=== PATIENT | female | born 1980 | race Hispanic/Latino ===

== ENCOUNTER 2016-12-21 22:45 | Emergency (ER) | payer MEDICAID ==
[2016-12-21 22:46] VITALS: BMI 24.4
[2016-12-21 23:01] VITALS: O2SAT 97
--- NOTE | 2016-12-21 23:20 | C.PDOC ---
History Of Present Illness 36 y/o female presents to the ED with complaint of alcohol withdrawal. Patient states she was trying to get alcohol but her mother wanted her to come to the ED. Patient is complaining of shakes. Patient has history of withdrawal seizures. She denies other associated symptoms. Patient was seen in [facility] last night for same complaints. CO ETOH WITHDRAWAL. PS WAS TRYING TO GET ETOH BUT MOM WANTED HER TO COME TO ER. CO SHAKES. HO WITHDRAWAL SZ. DENIES OTHER ASSOC SX. SEEN @ [facility] ER LAST NIGHT FOR SAME. EXAM CALM COOPERATOVE CV RRR SINUS TACH WARM DRY NEURO NO SZ, FOCAL DEF PSYCH CALM, NO ACUTE INTOX. Time Seen by Provider: 12/21/16 23:06 Chief Complaint (Nursing): Substance Abuse History Per: Patient History/Exam Limitations: no limitations Onset/Duration Of Symptoms: Hrs Current Symptoms Are (Timing): Still Present Suicide/Self Injury Attempted (Context): None Modifying Factor(s): Alcohol Associated Symptoms: denies: Suicidal Thoughts, Suicidal Plan Involuntary Hold By: None Recent travel outside of the [place]: No Additional History Per: Patient Past Medical History Reviewed: Historical Data, Nursing Documentation, Vital Signs Vital Signs: Last Vital Signs Temp 99.8 F H 12/21/16 22:59 Pulse 114 H 12/21/16 22:59 Resp 22 12/21/16 22:59 BP 120/79 12/21/16 22:59 Pulse Ox 97 12/21/16 23:20 - Medical History PMH: Anxiety, Depression, Gastritis, Migraine, Pancreatitis, Seizures (from etoh withdrawal ) Denies: Diabetes, Hepatitis, HIV, HTN, Chronic Kidney Disease, Sexually Transmitted Disease Surgical History: No Surg Hx - [facility] DETOXIFICATION SERVICES FOR SUBSTANCE ABUSE TREATMENT (06/08/15) 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, PSYCHOEDUCATION (06/08/15) INFLUENZA VACCINATION (01/27/14) INTRODUCTION OF SERUM/TOX/VACCINE INTO MUSCLE, PERC APPROACH (03/26/15) Family History: States: Unknown Family Hx - Social History Hx Alcohol Use: Yes Hx Substance Use: No - Immunization History Hx Tetanus Toxoid Vaccination: No Hx Influenza Vaccination: No Hx Pneumococcal Vaccination: No Review Of Systems Psych: Positive for: Withdrawal (alcohol ) Physical Exam - Physical Exam Appears: Non-toxic, No Acute Distress, Other (calm, cooperative ) Skin: Normal Color, Warm, Dry Head: Atraumatic, Normacephalic Eye(s): bilateral: Normal Inspection Oral Mucosa: Moist Neck: Supple Chest: Symmetrical, No Deformity, No Tenderness Cardiovascular: Rhythm Regular, No Murmur, Other (sinus tachycardia ) Respiratory: Normal Breath Sounds, No Rales, No Rhonchi, No Wheezing Extremity: Normal ROM Neurological/Psych: Other (no seizure. no focal deficits. calm, no acute intoxication. ) Gait: Steady ED Course And Treatment O2 Sat by Pulse Oximetry: 97 (on RA) Pulse Ox Interpretation: Normal Progress Note: Patient received Librium IVP, Librium PO, and Zofran IVP. - Physician Consult Information Time Consulting Physician Contacted: 23:10 Outcome Of Conversation: d/w crisis Ayinde no female detox beds avail Disposition Counseled Patient/Family Regarding: Diagnosis, Need For Followup - Disposition Referrals: Non [facility] Provider, [Primary Care Provider] - SHILPI,DETOX [Other] Disposition: HOME/ ROUTINE Disposition Time: 23:19 Condition: IMPROVED Instructions: Alcohol Withdrawal (ED) Forms: Vanu (Tuvaluan) - Clinical Impression Clinical Impression: Alcoholism, Alcohol withdrawal - Scribe Statement The provider has reviewed the documentation as recorded by the Scribe (Leona Mora) Provider Attestation: All medical record entries made by the Scribe were at my direction and personally dictated by me. I have reviewed the chart and agree that the record accurately reflects my personal performance of the history, physical exam, medical decision making, and the department course for this patient. I have also personally directed, reviewed, and agree with the discharge instructions and disposition.
[2016-12-22 00:01] VITALS: BP 116/72; PULSE 100; RESP 20; TEMP 99.4
== END 2016-12-21 23:59 | disposition home or self-care (01) ==
LOC: C.ER 22:45 → SUPCPDRO 22:45 → C.ER 23:59
DX: F10.239 Alcohol dependence with withdrawal, unspecified (principal); Y90.9 Presence of alcohol in blood, level not specified
CPT/HCPCS: 82948; 96374; 96375; 99283; J2060; J2405